=== PATIENT | female | born 1995 | race African-American/Black ===

== ENCOUNTER 2017-03-29 14:45 | Inpatient (IN) | payer BC ==
[2017-03-29] MEDS: PIPER-TAZO 3.375 GM IV (PMX) 100 ML IVPB (20:24)
[2017-03-29] MEDS: morphine 4 MG/ML VIAL IV (20:24)
[2017-03-29] MEDS: KETOROLAC 30 MG INJ IV (20:25)
[2017-03-29 20:28] LABS: ADD MAN DIFF? NO
[2017-03-29 20:29] LABS: BASOPHILS % 0.3 % (0.0-2.0); EOSINOPHILS # 0.1 10^3/ul (0.0-0.5); EOSINOPHILS % 0.6 % (0.0-7.0); HEMATOCRIT 40.9 % (37.0-47.0); HEMOGLOBIN 13.3 g/dl (12.0-16.0); LYMPHOCYTES % 16.4 % (15.0-51.0); MEAN CORPUSCULAR HEMOGLOBIN 27.9 pg (29.0-33.0); MEAN CORPUSCULAR HGB CONC 32.5 g/dl (32.0-37.0); MEAN CORPUSCULAR VOLUME 85.9 fl (82.0-101.0); MEAN PLATELET VOLUME 9.6 fl (7.4-10.4); MONOCYTE # 0.9 10^3/ul (0.3-0.9); MONOCYTES % 7.2 % (0.0-11.0); NEUTROPHIL # 9.1 10^3/ul (1.6-7.5); PLATELET COUNT 465 10^3/UL (140-415); RED BLOOD COUNT 4.76 10^6/ul (4.20-5.40); RED CELL DISTRIBUTION WIDTH 13.2 % (11.5-14.5)
[2017-03-29 20:29] LABS: WHITE BLOOD COUNT 12.1 10^3/ul (4.8-10.8)
[2017-03-29 20:53] LABS: LACTIC ACID 1.2 mmol/L (0.5-2.0)
[2017-03-29] MEDS: SOD CHLORIDE 0.9% 1,000 ML IV (21:37)
[2017-03-29] MEDS: VANCOMYCIN 1 GM (PMX) 250 ML IVPB (21:56)
[2017-03-29 22:05] LABS: ANION GAP 15 (8-16); BLOOD UREA NITROGEN 6 mg/dl (7-20); CALCIUM 8.8 mg/dl (8.4-10.2); CARBON DIOXIDE 24 mmol/L (21-31); CHLORIDE 104 mmol/L (97-110); CREATININE 0.65 mg/dl (0.44-1.00); GLUCOSE 91 mg/dl (70-220); SODIUM 140 mmol/L (135-144)
[2017-03-29 22:28] LABS: POTASSIUM 2.9 mmol/L (3.5-5.1)
[2017-03-29 22:46] LABS: LACTIC ACID 0.6 mmol/L (0.5-2.0)
[2017-03-29] MEDS: HYDROCODONE/APAP (5/325) TAB PO (23:04)
[2017-03-29] MEDS: POTASSIUM CHLORIDE (SR) 20 MEQ TAB PO (23:04)
[2017-03-30] MEDS ORDERED: VANCOMYCIN IV PER PHARMACY XX (00:30)
[2017-03-30] MEDS ORDERED: NACL 0.9% 3 ML SYG IV (00:30)
[2017-03-30] MEDS ORDERED: ACETAMINOPHEN 325 MG TAB PO (00:30)
[2017-03-30] MEDS ORDERED: ONDANSETRON 4 MG TAB PO (00:30)
[2017-03-30 00:52] LABS: LACTIC ACID 0.6 mmol/L (0.5-2.0)
[2017-03-30 05:31] LABS: ADD MAN DIFF? NO
[2017-03-30 05:33] LABS: BASOPHILS % 0.4 % (0.0-2.0); EOSINOPHILS # 0.1 10^3/ul (0.0-0.5); EOSINOPHILS % 1.6 % (0.0-7.0); HEMATOCRIT 35.4 % (37.0-47.0); HEMOGLOBIN 11.2 g/dl (12.0-16.0); LYMPHOCYTES # 1.6 10^3/ul (0.8-2.9); LYMPHOCYTES % 19.6 % (15.0-51.0); MEAN CORPUSCULAR HEMOGLOBIN 27.6 pg (29.0-33.0); MEAN CORPUSCULAR HGB CONC 31.6 g/dl (32.0-37.0); MEAN CORPUSCULAR VOLUME 87.2 fl (82.0-101.0); MEAN PLATELET VOLUME 9.7 fl (7.4-10.4); MONOCYTE # 0.7 10^3/ul (0.3-0.9); MONOCYTES % 7.9 % (0.0-11.0); NEUTROPHIL # 5.8 10^3/ul (1.6-7.5); NEUTROPHILS % 70.1 % (39.0-77.0); PLATELET COUNT 383 10^3/UL (140-415); RED BLOOD COUNT 4.06 10^6/ul (4.20-5.40); RED CELL DISTRIBUTION WIDTH 13.2 % (11.5-14.5)
[2017-03-30 05:33] LABS: WHITE BLOOD COUNT 8.3 10^3/ul (4.8-10.8)
[2017-03-30 06:10] LABS: ALANINE AMINOTRANSFERASE 34 IU/L (13-69); ALKALINE PHOSPHATASE 70 IU/L (42-121); ANION GAP 11 (8-16); ASPARTATE AMINO TRANSFERASE 23 IU/L (15-46); BLOOD UREA NITROGEN 5 mg/dl (7-20); CALCIUM 8.9 mg/dl (8.4-10.2); CARBON DIOXIDE 28 mmol/L (21-31); CHLORIDE 106 mmol/L (97-110); CREATININE 0.64 mg/dl (0.44-1.00); GLUCOSE 124 mg/dl (70-220); MAGNESIUM 2.2 mg/dl (1.7-2.5); PHOSPHORUS 3.7 mg/dl (2.5-4.9); POTASSIUM 3.5 mmol/L (3.5-5.1); SODIUM 141 mmol/L (135-144); TOTAL PROTEIN 6.4 g/dl (6.1-8.1)
[2017-03-30 06:11] LABS: HEMOGLOBIN A1C 5.5 % (0-5.9)
[2017-03-30 06:11] LABS: ALBUMIN 3.3 g/dl (3.3-4.9); ALBUMIN/GLOBULIN RATIO 1.06; CHOL/HDL RATIO 2.6 RATIO; CHOLESTEROL 124 mg/dl (100-200); HDL CHOLESTEROL 47 mg/dl (33-83); LDL CHOLESTEROL,CALCULATED 70 mg/dl; TRIGLYCERIDES 34 mg/dl (0-149)
[2017-03-30] MEDS: HYDROCODONE/APAP (5/325) TAB PO ×3 (06:36→18:23)
[2017-03-30 06:38] LABS: THYROID STIMULATING HORMONE 0.155 MIU/L (0.465-4.680)
[2017-03-30] MEDS: VANCOMYCIN 1 GM 250 ML IVPB (09:30)
[2017-03-30 09:34] LABS: FREE T4 (FREE THYROXINE) 1.17 ng/dl (0.79-2.35)
[2017-03-30] MEDS: morphine 2 MG INJ IV ×3 (10:49→20:08)
[2017-03-30 13:13] LABS: HEPATITIS B SURFACE ANTIGEN NEGATIVE (NEGATIVE)
[2017-03-30] MEDS: IOHEXOL 300MG/ML 150 ML BTL (13:17)
[2017-03-30] MEDS: SOD CHLORIDE 0.9% 100 ML (13:17)
[2017-03-30 13:30] LABS: HEPATITIS B CORE ANTIBODY NEGATIVE (NEGATIVE); HEPATITIS C VIRAL ANTIBODY NEGATIVE (NEGATIVE)
[2017-03-30 13:31] LABS: HEPATITIS B SURFACE ANTIBODY NEGATIVE (NEGATIVE)
[2017-03-30 13:38] LABS: HIV 1&2 ANTIBODY NEGATIVE (NEGATIVE)
[2017-03-30] MEDS: VANCOMYCIN 750 MG in DEXTROSE 5% 150 ML IVPB (17:10)
[2017-03-30] MEDS ORDERED: DIPHTH/TET/ACEL PERTUSS (ADULT) 0.5 ML VIAL IM* (18:30)
[2017-03-30] MEDS ORDERED: [UNRECOGNIZED DRUG - REMARK] XX (19:00)
[2017-03-30] MEDS: TETANUS IMMUNE GLOB 250 UNIT SYG IM (22:54)
[2017-03-30] MEDS: KETOROLAC 30 MG INJ IV (23:06)
[2017-03-31] MEDS: morphine 2 MG INJ IV ×4 (00:47→20:40)
[2017-03-31] MEDS: VANCOMYCIN 750 MG in DEXTROSE 5% 150 ML IVPB ×3 (01:26→16:34)
[2017-03-31] MEDS: HYDROCODONE/APAP (5/325) TAB PO (03:42)
[2017-03-31] MEDS: KETOROLAC 30 MG INJ IV ×2 (08:47→17:42)
[2017-03-31 09:37] LABS: VANCOMYCIN,TROUGH 12.9 ug/ml (10.0-20.0)
[2017-04-01] MEDS: VANCOMYCIN 750 MG in DEXTROSE 5% 150 ML IVPB ×3 (00:44→17:19)
[2017-04-01] MEDS: morphine 2 MG INJ IV ×4 (00:44→17:20)
[2017-04-01] MEDS: HYDROCODONE/APAP (5/325) TAB PO (02:42)
[2017-04-01 05:53] LABS: ADD MAN DIFF? NO
[2017-04-01 06:04] LABS: WHITE BLOOD COUNT 15.8 10^3/ul (4.8-10.8)
[2017-04-01 06:04] LABS: BASOPHILS % 0.2 % (0.0-2.0); EOSINOPHILS # 0.1 10^3/ul (0.0-0.5); EOSINOPHILS % 0.8 % (0.0-7.0); HEMATOCRIT 40.3 % (37.0-47.0); LYMPHOCYTES # 1.5 10^3/ul (0.8-2.9); LYMPHOCYTES % 9.6 % (15.0-51.0); MEAN CORPUSCULAR HEMOGLOBIN 27.8 pg (29.0-33.0); MEAN CORPUSCULAR HGB CONC 32.3 g/dl (32.0-37.0); MEAN CORPUSCULAR VOLUME 86.1 fl (82.0-101.0); MEAN PLATELET VOLUME 9.7 fl (7.4-10.4); MONOCYTE # 0.8 10^3/ul (0.3-0.9); MONOCYTES % 5.1 % (0.0-11.0); NEUTROPHIL # 13.2 10^3/ul (1.6-7.5); NEUTROPHILS % 83.7 % (39.0-77.0); PLATELET COUNT 518 10^3/UL (140-415); RED BLOOD COUNT 4.68 10^6/ul (4.20-5.40); RED CELL DISTRIBUTION WIDTH 13.5 % (11.5-14.5)
[2017-04-01 06:37] LABS: ANION GAP 15 (8-16); BLOOD UREA NITROGEN 7 mg/dl (7-20); CALCIUM 9.3 mg/dl (8.4-10.2); CARBON DIOXIDE 28 mmol/L (21-31); CHLORIDE 99 mmol/L (97-110); CREATININE 0.59 mg/dl (0.44-1.00); GLUCOSE 109 mg/dl (70-220); MAGNESIUM 2.1 mg/dl (1.7-2.5); POTASSIUM 3.6 mmol/L (3.5-5.1); SODIUM 138 mmol/L (135-144)
[2017-04-01] MEDS: LORAZEPAM 1 MG TAB PO ×2 (14:27→22:26)
[2017-04-01] MEDS ORDERED: morphine 2 MG INJ IV ×2 (18:30→21:00)
[2017-04-01] MEDS ORDERED: DOCUSATE SODIUM 100 MG CAP PO (18:30)
[2017-04-01 20:05] LABS: ADD MAN DIFF? NO
[2017-04-01 20:08] LABS: WHITE BLOOD COUNT 13.4 10^3/ul (4.8-10.8)
[2017-04-01 20:08] LABS: BASOPHILS % 0.2 % (0.0-2.0); EOSINOPHILS # 0.2 10^3/ul (0.0-0.5); EOSINOPHILS % 1.1 % (0.0-7.0); HEMATOCRIT 38.6 % (37.0-47.0); HEMOGLOBIN 12.5 g/dl (12.0-16.0); LYMPHOCYTES # 1.9 10^3/ul (0.8-2.9); LYMPHOCYTES % 13.9 % (15.0-51.0); MEAN CORPUSCULAR HEMOGLOBIN 27.8 pg (29.0-33.0); MEAN CORPUSCULAR HGB CONC 32.4 g/dl (32.0-37.0); MEAN PLATELET VOLUME 9.7 fl (7.4-10.4); MONOCYTE # 0.7 10^3/ul (0.3-0.9); MONOCYTES % 4.9 % (0.0-11.0); NEUTROPHIL # 10.6 10^3/ul (1.6-7.5); NEUTROPHILS % 79.3 % (39.0-77.0); PLATELET COUNT 521 10^3/UL (140-415); RED BLOOD COUNT 4.49 10^6/ul (4.20-5.40); RED CELL DISTRIBUTION WIDTH 13.4 % (11.5-14.5)
[2017-04-01] MEDS: LACTOBACILLUS RHAMNOSUS CAP PO (20:17)
[2017-04-01] MEDS: HYDROCODONE/APAP (10/325) TAB PO (20:18)
[2017-04-01] MEDS: KETOROLAC 30 MG INJ IV (22:26)
[2017-04-02] MEDS: VANCOMYCIN 750 MG in DEXTROSE 5% 150 ML IVPB ×3 (00:26→17:17)
[2017-04-02] MEDS: HYDROCODONE/APAP (10/325) TAB PO ×2 (00:26→09:45)
[2017-04-02] MEDS: PIPER-TAZO 3.375 GM IV (PMX) 100 ML IVPB ×3 (03:04→20:52)
[2017-04-02 04:38] LABS: BARBITURATES Negative (NEGATIVE); BENZODIAZEPINES Negative (NEGATIVE); CANNABINOIDS Positive (NEGATIVE); COCAINE Negative (NEGATIVE); OPIATES Positive (NEGATIVE)
[2017-04-02] MEDS: KETOROLAC 30 MG INJ IV ×3 (05:12→21:40)
[2017-04-02] MEDS: LORAZEPAM 1 MG TAB PO ×3 (05:16→21:43)
[2017-04-02 05:18] LABS: AMPHETAMINE/METHAMPHETAMINE POSITIVE (NEGATIVE)
[2017-04-02 07:08] LABS: ALANINE AMINOTRANSFERASE 29 IU/L (13-69); ALBUMIN 3.6 g/dl (3.3-4.9); ALBUMIN/GLOBULIN RATIO 0.94; ALKALINE PHOSPHATASE 81 IU/L (42-121); ANION GAP 15 (8-16); ASPARTATE AMINO TRANSFERASE 17 IU/L (15-46); BLOOD UREA NITROGEN 6 mg/dl (7-20); CALCIUM 9.3 mg/dl (8.4-10.2); CARBON DIOXIDE 27 mmol/L (21-31); CHLORIDE 102 mmol/L (97-110); CREATININE 0.58 mg/dl (0.44-1.00); GLUCOSE 97 mg/dl (70-220); POTASSIUM 3.5 mmol/L (3.5-5.1); SODIUM 140 mmol/L (135-144); TOTAL PROTEIN 7.4 g/dl (6.1-8.1)
[2017-04-02 07:59] LABS: HEMOGLOBIN A1C 5.7 % (0-5.9)
[2017-04-02] MEDS: LACTOBACILLUS RHAMNOSUS CAP PO ×2 (08:46→21:43)
[2017-04-02] MEDS ORDERED: BISACODYL (EC) 5 MG TAB PO (12:00)
[2017-04-02] MEDS: LORAZEPAM 2 MG INJ IV (17:11)
[2017-04-02] MEDS: NICOTINE (21 MG/24 HR) PATCH TRANSDERM (18:30)
== END 2017-04-02 22:10 | disposition left against medical advice (07) | DRG 603 ==
LOC: MS1 03-30 00:26 → FTE 14:45
PROVIDERS: Family Medicine
DX: L03.113 Cellulitis of right upper limb (principal); F15.10 Other stimulant abuse, uncomplicated; E05.90 Thyrotoxicosis, unspecified without thyrotoxic crisis or storm; E87.6 Hypokalemia; F41.9 Anxiety disorder, unspecified; F17.210 Nicotine dependence, cigarettes, uncomplicated; F31.9 Bipolar disorder, unspecified; F12.10 Cannabis abuse, uncomplicated; M65.9 Synovitis and tenosynovitis, unspecified
CPT/HCPCS: 73130-RT; 73200; 80048; 80053; 80061; 80202; 80307; 83036; 83605; 83735; 84100; 84439; 84443; 84703; 85025; 86703; 86704; 86706; 86803; 87040; 87340; 90389; 96374; 96375; 99291-25

== ENCOUNTER 2017-04-03 00:21 | Inpatient (IN) | payer BC ==
[2017-04-03 04:17] LABS: ADD UMIC NO; UR ASCORBIC ACID NEGATIVE (NEGATIVE); UR BILIRUBIN (Dip) NEGATIVE (NEGATIVE); UR BLOOD (Dip) NEGATIVE (NEGATIVE); UR CLARITY CLEAR (CLEAR); UR COLOR STRAW (YELLOW); UR GLUCOSE (Dip) NEGATIVE (NEGATIVE); UR KETONES (Dip) NEGATIVE (NEGATIVE); UR LEUKOCYTE ESTERASE (Dip) NEGATIVE Leu/ul (NEGATIVE); UR NITRITE (Dip) NEGATIVE (NEGATIVE); UR SPECIFIC GRAVITY (Dip) 1.005 (1.003-1.030); UR TOTAL PROTEIN (Dip) NEGATIVE (NEGATIVE); UR UROBILINOGEN (Dip) NEGATIVE (NEGATIVE)
[2017-04-03 04:29] LABS: ALANINE AMINOTRANSFERASE 30 IU/L (13-69); ALBUMIN 3.8 g/dl (3.3-4.9); ALBUMIN/GLOBULIN RATIO 0.95; ALKALINE PHOSPHATASE 83 IU/L (42-121); ANION GAP 17 (8-16); ASPARTATE AMINO TRANSFERASE 21 IU/L (15-46); BLOOD UREA NITROGEN 10 mg/dl (7-20); CALCIUM 9.5 mg/dl (8.4-10.2); CARBON DIOXIDE 27 mmol/L (21-31); CHLORIDE 104 mmol/L (97-110); CREATININE 0.57 mg/dl (0.44-1.00); GLUCOSE 122 mg/dl (70-220); POTASSIUM 4.3 mmol/L (3.5-5.1); SODIUM 144 mmol/L (135-144); TOTAL PROTEIN 7.8 g/dl (6.1-8.1)
[2017-04-03 05:01] LABS: CANNABINOIDS Negative (NEGATIVE); OPIATES Positive (NEGATIVE)
[2017-04-03 05:05] LABS: ACETAMINOPHEN < 10.0 ug/ml (10.0-30.0); SALICYLATE < 1.0 mg/dl (5.0-30.0)
[2017-04-03 05:10] LABS: ETHANOL < 10.0 mg/dl
[2017-04-03 05:11] LABS: AMPHETAMINE/METHAMPHETAMINE Positive (NEGATIVE); BARBITURATES Negative (NEGATIVE); BENZODIAZEPINES Negative (NEGATIVE); COCAINE Negative (NEGATIVE)
[2017-04-03] MEDS ORDERED: ONDANSETRON 4 MG INJ IV (06:30)
[2017-04-03] MEDS ORDERED: ACETAMINOPHEN 325 MG TAB PO (06:30)
[2017-04-03] MEDS: VANCOMYCIN 1 GM (PMX) 250 ML IVPB (16:00)
[2017-04-03] MEDS: PIPER-TAZO 3.375 GM IV (PMX) 100 ML IVPB (16:03)
[2017-04-03] MEDS: KETOROLAC 30 MG INJ IM (19:00)
== END 2017-04-03 20:00 | disposition home or self-care (01) | DRG 603 ==
LOC: MS1 06:04 → E/R 00:21
DX: L03.113 Cellulitis of right upper limb (principal); E05.90 Thyrotoxicosis, unspecified without thyrotoxic crisis or storm; F17.200 Nicotine dependence, unspecified, uncomplicated
CPT/HCPCS: 73218; 80053; 80306; 80307; 81003; 96372; 99285-25

== ENCOUNTER 2017-10-12 01:09 | Emergency (ER) | payer BC ==
[2017-10-12] MEDS: SODIUM CHLORIDE 0.9% 1L BAG IV* (07:22)
[2017-10-12] MEDS: ACETAMINOPHEN 325 MG TAB PO (07:22)
[2017-10-12] MEDS: CEFTRIAXONE 1 GM/50 ML (PMX) 50 ML IVPB (07:44)
[2017-10-12 08:01] LABS: ADD MAN DIFF? NO
[2017-10-12 08:04] LABS: WHITE BLOOD COUNT 11.9 10^3/ul (4.8-10.8)
[2017-10-12 08:04] LABS: BASOPHILS % 0.2 % (0.0-2.0); EOSINOPHILS # 0.1 10^3/ul (0.0-0.5); EOSINOPHILS % 0.5 % (0.0-7.0); HEMATOCRIT 40.2 % (37.0-47.0); HEMOGLOBIN 13.2 g/dl (12.0-16.0); LYMPHOCYTES # 1.4 10^3/ul (0.8-2.9); LYMPHOCYTES % 11.3 % (15.0-51.0); MEAN CORPUSCULAR HGB CONC 32.8 g/dl (32.0-37.0); MEAN CORPUSCULAR VOLUME 85.4 fl (82.0-101.0); MEAN PLATELET VOLUME 10.1 fl (7.4-10.4); MONOCYTE # 0.7 10^3/ul (0.3-0.9); MONOCYTES % 6.2 % (0.0-11.0); NEUTROPHIL # 9.7 10^3/ul (1.6-7.5); NEUTROPHILS % 81.5 % (39.0-77.0); PLATELET COUNT 299 10^3/UL (140-415); RED BLOOD COUNT 4.71 10^6/ul (4.20-5.40); RED CELL DISTRIBUTION WIDTH 13.8 % (11.5-14.5)
[2017-10-12 08:25] LABS: LACTIC ACID 1.1 mmol/L (0.5-2.0)
[2017-10-12 08:26] LABS: ALANINE AMINOTRANSFERASE 20 IU/L (13-69); ALBUMIN 4.6 g/dl (3.3-4.9); ALBUMIN/GLOBULIN RATIO 1.09; ALKALINE PHOSPHATASE 96 IU/L (42-121); ANION GAP 17 (8-16); ASPARTATE AMINO TRANSFERASE 32 IU/L (15-46); BILIRUBIN,INDIRECT 0.2 mg/dl (0-1.1); BILIRUBIN,TOTAL 0.2 mg/dl (0.2-1.3); BLOOD UREA NITROGEN 10 mg/dl (7-20); CALCIUM 9.7 mg/dl (8.4-10.2); CARBON DIOXIDE 23 mmol/L (21-31); CHLORIDE 105 mmol/L (97-110); CREATININE 0.63 mg/dl (0.44-1.00); GLUCOSE 87 mg/dl (70-220); LIPASE 92 U/L (23-300); POTASSIUM 4.3 mmol/L (3.5-5.1); SODIUM 141 mmol/L (135-144); TOTAL PROTEIN 8.8 g/dl (6.1-8.1)
[2017-10-12 08:30] LABS: INR 0.92; PROTIME 12.4 Sec (11.9-14.9)
[2017-10-12 08:31] LABS: PARTIAL THROMBOPLASTIN TIME 31.8 Sec (25.0-35.0)
[2017-10-12 08:38] LABS: TROPONIN-I < 0.010 ng/ml (0.000-0.120)
[2017-10-12 08:46] LABS: ADD UMIC YES; UR ASCORBIC ACID 20 mg/dL (NEGATIVE); UR BACTERIA FEW /HPF (NONE SEEN); UR BILIRUBIN (Dip) NEGATIVE (NEGATIVE); UR BLOOD (Dip) 1+ mg/dL (NEGATIVE); UR CLARITY CLOUDY (CLEAR); UR COLOR YELLOW (YELLOW); UR GLUCOSE (Dip) NEGATIVE (NEGATIVE); UR KETONES (Dip) NEGATIVE (NEGATIVE); UR LEUKOCYTE ESTERASE (Dip) 2+ Leu/ul (NEGATIVE); UR MUCUS MANY /HPF (NONE SEEN); UR NITRITE (Dip) POSITIVE (NEGATIVE); UR RBC 22 /HPF (0-5); UR SPECIFIC GRAVITY (Dip) 1.026 (1.003-1.030); UR SQUAMOUS EPITHELIAL CELL FEW /HPF (FEW); UR TOTAL PROTEIN (Dip) 1+ mg/dl (NEGATIVE); UR UROBILINOGEN (Dip) NEGATIVE (NEGATIVE); UR WBC 113 /HPF (0-5)
[2017-10-12 09:15] LABS: BARBITURATES Negative (NEGATIVE); BENZODIAZEPINES Negative (NEGATIVE)
[2017-10-12 09:32] LABS: CANNABINOIDS Positive (NEGATIVE); COCAINE Negative (NEGATIVE); OPIATES Negative (NEGATIVE)
[2017-10-12 10:34] LABS: AMPHETAMINE/METHAMPHETAMINE POS (NEGATIVE)
== END 2017-10-12 10:39 | disposition home or self-care (01) ==
LOC: E/R 01:09
DX: N30.90 Cystitis, unspecified without hematuria (principal); F15.10 Other stimulant abuse, uncomplicated; F17.210 Nicotine dependence, cigarettes, uncomplicated; R50.9 Fever, unspecified; M79.601 Pain in right arm
CPT/HCPCS: 36415; 71045; 73030-RT; 80053; 80307; 81001; 81025; 83605; 83690; 84484; 85025; 85610; 85730; 87040; 87086; 93005; 96374; 99285-25